=== PATIENT | female | born 1960 | race Caucasian/White ===

== ENCOUNTER 2017-03-14 12:52 | Outpatient (CLI) | payer MEDICARE, OTHER | END 2017-03-14 12:53 | disposition home or self-care (01) | LOC: NC 12:52 | PROVIDERS: ATTEND Internal Medicine | DX: E66.9 Obesity, unspecified (principal); Z71.3 Dietary counseling and surveillance; Z68.31 Body mass index [BMI] 31.0-31.9, adult; I25.10 Atherosclerotic heart disease of native coronary artery without angina pectoris; I10 Essential (primary) hypertension; E78.5 Hyperlipidemia, unspecified; Z87.891 Personal history of nicotine dependence ==